=== PATIENT | male | born 1950 | race Caucasian/White ===

== ENCOUNTER → 2023-05-04 12:57 | Outpatient (CLI) | payer OTHER, SELFPAY | PROVIDERS: PCP Family Medicine; Referring Provider Internal Medicine; Visit Provider Internal Medicine | DX: R06.02 Shortness of breath (principal); J84.9 Interstitial pulmonary disease, unspecified; Z87.891 Personal history of nicotine dependence; J98.8 Other specified respiratory disorders | CPT/HCPCS: 94060; 94726; 94729 ==

== ENCOUNTER → 2023-05-17 11:52 | Outpatient (CLI) | payer OTHER, SELFPAY ==
--- NOTE | 2023-05-17 11:52 | DI.CT.S_ITS ---
PROCEDURE: CT LUNG LOW DOSE SCREENING INDICATIONS: lung cancer screening TECHNIQUE: Noncontrast 2.0-2.5 mm thick sections acquired from the pulmonary apices to the posterior costophrenic angles. 7 mm thick axial MIP, and 5 mm coronal and sagittal reformats were then acquired. For radiation dose reduction, the following was used: automated exposure control, adjustment of mA and/or kV according to patient size. COMPARISON: [facility], CR, XR CHEST 2 VIEWS, 07/27/2021, 16:15. [facility], CT, CT LOW DOSE LUNG CA SCREENING, 05/17/2022, 9:41. FINDINGS: Image quality: Diagnostic. Lower Neck: No enlarged lymph nodes. Thyroid: No thyroid nodules which require sonographic follow up, per consensus guidelines. Axillae: No enlarged lymph nodes. Chest Wall: Unremarkable. Bones: Note is made of old right T11 and T12 rib fractures. Lungs and Pleura: No pneumothorax or pleural effusions. No consolidation. There is neural subdural septal thickening and pulmonary fibrosis. Heart: Heart size is normal. No pericardial effusion. Mild coronary artery atherosclerosis. Thoracic Vessels: The aorta and pulmonary arteries demonstrate normal size. Mediastinum and Nidhi: No enlarged lymph nodes. Esophagus: No wall thickening. No hiatal hernia. Upper Abdomen: Visualized upper abdomen solid organs and bowel loops appear normal. IMPRESSION: No suspicious pulmonary nodules. LUNG-RADS 1; continued annual screening, if eligible. 2. Bilateral subpleural septal thickening and pulmonary fibrosis, suggesting interstitial lung disease such as UIP. Dictated by: Cedric Hadley M.D. on 05/17/2023 at 16:55 Approved by: Cedric Hadley M.D. on 05/17/2023 at 17:00
== END ==
PROVIDERS: PCP Family Medicine; Referring Provider Internal Medicine; Visit Provider Internal Medicine
DX: Z12.2 Encounter for screening for malignant neoplasm of respiratory organs (principal); Z87.891 Personal history of nicotine dependence; J84.9 Interstitial pulmonary disease, unspecified; I25.10 Atherosclerotic heart disease of native coronary artery without angina pectoris
CPT/HCPCS: 71271

== ENCOUNTER → 2024-06-12 11:18 | Outpatient (CLI) | payer OTHER, SELFPAY | LOC: RESP 11:19 | PROVIDERS: PCP Family Medicine; Referring Provider Internal Medicine; Visit Provider Internal Medicine | DX: J84.89 Other specified interstitial pulmonary diseases (principal); Z87.891 Personal history of nicotine dependence; R94.2 Abnormal results of pulmonary function studies | CPT/HCPCS: 94060; 94726; 94729 ==

== ENCOUNTER → 2024-07-08 11:11 | Outpatient (CLI) | payer OTHER, SELFPAY ==
--- NOTE | 2024-07-08 11:12 | DI.CT.S_ITS ---
PROCEDURE: CT LUNG LOW DOSE SCREENING INDICATIONS: LD CT yearly due TECHNIQUE: Noncontrast 2.0-2.5 mm thick sections acquired from the pulmonary apices to the posterior costophrenic angles. 7 mm thick axial MIP, and 5 mm coronal and sagittal reformats were then acquired. For radiation dose reduction, the following was used: automated exposure control, adjustment of mA and/or kV according to patient size. COMPARISON: [facility], CT, CT LUNG LOW DOSE SCREENING, 05/17/2023, 11:55. FINDINGS: Image quality: Diagnostic. Lower Neck: No enlarged lymph nodes. Thyroid: No thyroid nodules which require sonographic follow up, per consensus guidelines. Axillae: No enlarged lymph nodes. Chest Wall: Unremarkable. Bones: No aggressive appearing bony lesions. Lungs and Pleura: No pneumothorax or pleural effusions. Moderate centrilobular emphysema. Peripheral septal thickening and honeycombing throughout bilateral lung virgen not significantly changed from prior study. No consolidation or suspicious nodules. Heart: Heart size is normal. No pericardial effusion. Thoracic Vessels: The aorta and pulmonary arteries demonstrate normal size. 3 vessel coronary artery atherosclerotic calcifications are seen. Mediastinum and Nidhi: No enlarged lymph nodes. Esophagus: No wall thickening. Small hiatal hernia. Upper Abdomen: Visualized upper abdomen solid organs and bowel loops appear normal. IMPRESSION: 1. No suspicious pulmonary nodules. 2. Suggestion of interstitial lung disease unchanged from previous study. LUNG-RADS 1; continued annual screening, if eligible. Clinically Significant Non-pulmonary Findings: Mild coronary atherosclerotic calcifications. Small hiatal hernia. Dictated by: Wilbert Sanchez M.D. on 07/08/2024 at 14:35 Approved by: Wilbert Sanchez M.D. on 07/08/2024 at 14:37
== END ==
PROVIDERS: PCP Family Medicine; Referring Provider Family Medicine; Visit Provider Internal Medicine
DX: Z12.2 Encounter for screening for malignant neoplasm of respiratory organs (principal); J43.2 Centrilobular emphysema; I70.90 Unspecified atherosclerosis; K44.9 Diaphragmatic hernia without obstruction or gangrene; F17.211 Nicotine dependence, cigarettes, in remission
CPT/HCPCS: 71271